=== PATIENT | male | born 1995 | race Native Hawaiian/Other Pacific Islander ===

== ENCOUNTER 2017-09-05 16:33 | Outpatient (CLI) | payer BC | END 2017-09-05 19:08 | disposition home or self-care (01) | LOC: RAD 16:33 | DX: M94.0 Chondrocostal junction syndrome [Tietze] (principal) ==

== ENCOUNTER 2018-08-30 16:43 | Emergency (ER) | payer BC ==
[~2018-08-30] VITALS: Ht 175.3 cm; Wt 63.5 kg
[2018-08-30 17:24] LABS: PLATELET COUNT 335 K/uL (142-355)
[2018-08-30 17:40] LABS: POTASSIUM 3.4 mmol/L (3.6-5.2); SODIUM 140 mmol/L (136-145)
[2018-08-30 18:50] VITALS: BP 121/83; TEMP 97.7
== END 2018-08-30 18:50 | disposition home or self-care (01) ==
LOC: ED 16:43
DX: R07.89 Other chest pain (principal)
CPT/HCPCS: 36415; 80053; 81000; 82550; 82553; 84484; 85027; 86318; 93005; 99283